=== PATIENT | male | born 1995 | race American Indian/Alaskan Native ===

== ENCOUNTER → 2024-09-05 16:09 | Outpatient (CLI) | payer OTHER, SELFPAY ==
[2024-09-05 16:58] LABS: COVID-19 CEPHEID 4-PLEX PCR Negative (Negative); Influenza A - CEPHEID Flu A POSITIVE (NEGATIVE); Influenza B - CEPHEID Flu B NEGATIVE (NEGATIVE); Respiratory Syncytial Virus Negative (Negative)
== END ==
PROVIDERS: Visit Provider Physician Assistant Surgical
DX: R05.1 Acute cough (principal)
CPT/HCPCS: 0241U

== ENCOUNTER 2024-09-06 05:24 | Emergency (ER) | payer OTHER, SELFPAY ==
[2024-09-06 05:32] VITALS: PULSE 129; O2SAT 97
--- NOTE | 2024-09-06 05:32 | ED.GENADULT ---
HPI - General Adult General Chief complaint: Nausea/Vomiting/Diarrhea Stated complaint: vomiting, has type A Flu, headaches Time Seen by Provider: 09/06/24 05:26 History of Present Illness HPI narrative: 28-year-old male with no reported past medical history presents with 2 days of fever, body aches, headache, and 1 night of vomiting. Seen at the walk-in clinic yesterday and diagnosed with flu a. He states that he has been trying to take [id number] medications at home, but can not keep anything, even liquids down. States that he has vomited at least 10 times since last night. Related Data Previous Rx's Medication Instructions Recorded ondansetron 4 mg disintegrating 4 mg PO Q8H PRN nausea and 09/06/24 tablet vomiting #30 tabs Allergies Allergy/AdvReac Type Severity Reaction Status Date / Time No Known Drug Allergies Allergy Unverified 09/05/24 13:30 Exam Initial Vital Signs Initial Vital Signs: Vital Signs Pulse Rate 129 H 09/06/24 05:32 Pulse Oximetry 97 09/06/24 05:32 Const: Awake, alert, nontoxic appearing HEENT: Mildly dry mucous membranes Cardiac: Tachycardia, regular rhythm RESP: unlabored, conversational without dyspnea GI: Soft, nontender, nondistended Skin: Warm, Dry, intact, no rashes Neuro: AO x3, CN II-XII grossly intact, moves all extremities Course Orders Ordered: ED Orders 09/06/24 05:31 BMP [Basic Metabolic Panel] Stat CBC Auto Diff [Complete Blood Count AUTO DIFF] Stat Sodium Chloride (Normal Saline 0.9%) 1,000 mls @ 1,000 mls/hr IV BOLUS ONE Stop: 09/06/24 06:30 Last Admin: 09/06/24 05:43 Dose: 1,000 mls/hr Discontinued Medications Ketorolac Tromethamine (Ketorolac 30 Mg/Ml Vial) 15 mg IV NOW ONE Stop: 09/06/24 05:32 Last Admin: 09/06/24 05:43 Dose: 15 mg Ondansetron HCl (Ondansetron 4 Mg/2 Ml Inj) 4 mg IV NOW ONE Stop: 09/06/24 05:32 Last Admin: 09/06/24 05:43 Dose: 4 mg Vital Signs Vital signs: Vital Signs - 8 hr 09/06/24 05:32 09/06/24 05:34 Temperature 100.8 F H Pulse Rate 129 H 133 H Respiratory Rate 16 Blood Pressure 140/61 Pulse Oximetry 97 94 Oxygen Delivery Method Room Air Medical Decision Making Lab Data 09/06/24 05:38 09/06/24 05:38 Labs: Lab Results 09/06/24 Range/Units 05:38 WBC 8.3 (4.5-11.0) X10^3/uL RBC 4.56 (4.5-5.9) X10^6/uL Hgb 13.3 L (13.5-17.5) g/dL Hct 38.5 L (41-53) % MCV 84.3 (80-100) fL MCH 29.2 (26-34) PG MCHC 34.6 (30-36) % RDW 12.8 (11.6-14.8) % Plt Count 170 (150-400) X10^3/uL Neut % (Auto) 88.7 H (50-75) % Lymph % (Auto) 4.5 L (25-40) % [place] % (Auto) 6.7 (3-14) % Eos % (Auto) 0.0 L (2-4) % Baso % (Auto) 0.1 (0-2) % Neut # (Auto) 7300 H (3789-8719) /uL Lymph # (Auto) 400 L (5563-7972) /uL [place] # (Auto) 600 (0-900) /uL Eos # (Auto) 0 (0-450) /uL Baso # (Auto) 0 (0-100) /uL Sodium 133 L (137-145) mmol/L Potassium 3.8 (3.4-5.1) mmol/L Chloride 102 (98-107) mmol/L Carbon Dioxide 24 (22-32) mmol/L BUN 16 (9-20) mg/dL Creatinine 1.11 (0.66-1.25) mg/dL Estimated GFR > 60 (>60) mL/min BUN/Creatinine Ratio 14.4 (6-22) Glucose 128 H (70-100) mg/dL Calcium 9.1 (8.4-10.2) mg/dL [facility] Narrative Medical decision making narrative: Nontoxic patient with signs and symptoms consistent with known flu a. Here today because he can not stop vomiting to take cough and cold medications at home. Patient tachycardic on arrival, he was noted to be tachycardic in the walk-in clinic. Mildly dry mucous membranes on exam. Otherwise unremarkable appearance. Basic laboratory work, IV fluids and antiemetics ordered. Laboratory work reviewed. No significant abnormalities identified. Patient's heart rate improved after IV fluids, tolerating p.o. without any further emesis. Patient informed of supportive care measures to take at home while recovering from influenza. Cruz sent to pharmacy of choice. Discharge Plan Departure Patient Disposition: Home Clinical Impression: Nausea & vomiting Instructions: DI for Influenza -- Adult, DI for Vomiting -- Adult Activity Restrictions/Additional Instructions: Follow a light diet for the next several days. Continue to take tylenol and ibuprofen as needed for cough/fever/pain. Elyan has been sent to your pharmacy for nausea and vomiting. Make sure that you stay hydrated and drink plenty of fluids Prescriptions: New ondansetron 4 mg tablet,disintegrating 4 mg PO Q8H PRN (Reason: nausea and vomiting) Qty: 30 0RF Referrals: Miscellaneous,Doctor, MD [Primary Care Provider] - Stand Alone Forms: Patient Portal/API/Survey, Work Release Note
[2024-09-06 05:34] VITALS: BP 140/61; PULSE 133; RESP 16; TEMP 38.2; O2SAT 94; BMI 25.1
[2024-09-06] MEDS: KETOROLAC 30 MG/ML VIAL 15 MG IV (05:43)
[2024-09-06] MEDS: ONDANSETRON 4 MG/2 ML INJ IV (05:43)
[2024-09-06] MEDS: SODIUM CHLORIDE 0.9% 1,000 ML 1000 ML IV (05:43)
[2024-09-06 05:46] LABS: Add Manual Diff / Slide Review NO; Basophils Absolute Auto 0 /uL (0-100); Basophils Percent Auto 0.1 % (0-2); Eosinophils Absolute Auto 0 /uL (0-450); Hematocrit 38.5 % (41-53); Hemoglobin 13.3 g/dL (13.5-17.5); Lymphocytes Absolute Auto 400 /uL (1100-4500); Lymphocytes Percent Auto 4.5 % (25-40); Mean Corpuscular HGB Conc 34.6 % (30-36); Mean Corpuscular Hemoglobin 29.2 PG (26-34); Mean Corpuscular Volume 84.3 fL (80-100); Monocytes Absolute Auto 600 /uL (0-900); Monocytes Percent Auto 6.7 % (3-14); Neutrophils Absolute Auto 7300 /uL (1500-7000); Neutrophils Percent Auto 88.7 % (50-75); Platelet Count 170 X10^3/uL (150-400); Red Blood Cell Count 4.56 X10^6/uL (4.5-5.9); Red Cell Distribution Width 12.8 % (11.6-14.8); White Blood Cell Count 8.3 X10^3/uL (4.5-11.0)
[2024-09-06 05:57] LABS: BUN Creatinine Ratio 14.4 (6-22); Blood Urea Nitrogen 16 mg/dL (9-20); Calcium 9.1 mg/dL (8.4-10.2); Carbon Dioxide 24 mmol/L (22-32); Chloride 102 mmol/L (98-107); Estimated Glomerular Filt Rate > 60 mL/min (>60); Glucose 128 mg/dL (70-100); HEMOLYSIS < 15 (0-50); Potassium 3.8 mmol/L (3.4-5.1); Sodium 133 mmol/L (137-145)
[2024-09-06 06:25] VITALS: BP 120/54; PULSE 109; RESP 20; TEMP 37.4; O2SAT 98
--- NOTE | 2024-09-06 06:27 | PC.NURSE ---
Pt states he's tolerating PO fluids
[2024-09-06] MEDS: ONDANSETRON 4 MG ODT PREPACK 1 BOTTLE MISC (06:35)
== END 2024-09-06 06:46 | disposition home or self-care (01) ==
PROVIDERS: Emergency Provider Emergency Medicine
DX: R11.2 Nausea with vomiting, unspecified (principal); J10.1 Influenza due to other identified influenza virus with other respiratory manifestations; R51.9 Headache, unspecified; R00.0 Tachycardia, unspecified
CPT/HCPCS: 36415; 80048; 85025; 96361; 96374; 96375; 99284; J1885; J2405